=== PATIENT | female | born 1965 | race Caucasian/White ===

== ENCOUNTER 2017-03-19 13:56 | Emergency (ER) | payer OTHER ==
[~2017-03-19] VITALS: Ht 170.2 cm; Wt 73.9 kg
[2017-03-19 14:45] LABS: Basophils # (auto) 0 uL; Basophils % (auto) 0.8 % (0.0-2.0); Eosinophils # (auto) 0.1 uL; Eosinophils % (auto) 2.3 % (0.0-7.0); Hematocrit 39.5 % (36.0-46.0); Hemoglobin 13.1 g/dL (12.2-16.2); Lymphocytes # (auto) 1.1 uL; Lymphocytes % (auto) 20.7 % (10.0-50.0); Mean Corpuscular Hemoglobin 30.6 pg (28.0-32.0); Mean Corpuscular Hgb Conc. 33.3 g/dL (32.0-36.0); Monocytes # (auto) 0.4 uL; Monocytes % (auto) 8.3 % (0.0-12.0); Neutrophils # (auto) 3.6 uL; Neutrophils % (auto) 67.9 % (37.0-80.0); Platelet Count (auto) 191 10^3/uL (140-450); Red Blood Cells 4.29 10^6/uL (4.0-5.20); Red Cell Distribution Width 13.2 % (11.8-14.3); White Blood Cell 5.4 10^3/uL (4.4-10.8)
[2017-03-19 15:05] LABS: Alanine Aminotransferase 17 U/L (13-56); Albumin 3.6 g/dL (3.4-5.0); Alkaline Phosphatase 72 U/L (45-117); Anion Gap 6 (5-15); Aspartate Aminotransferase 8 U/L (15-37); BUN/Creatinine Ratio 17.5; Bilirubin, Total 0.6 mg/dL (0.2-1.0); Blood Urea Nitrogen 11 mg/dL (7-18); Calcium 8.5 mg/dL (8.5-10.1); Carbon Dioxide 25 mmol/L (21-32); Chloride 110 mmol/L (98-107); GFR African American 129 mL/min; GFR Non-African American 106 mL/min; Glucose 82 mg/dL (74-106); Magnesium 2.5 mg/dL (1.6-2.6); Potassium 3.9 mmol/L (3.5-5.1); Sodium 141 mmol/L (136-145); Total Protein 7.2 g/dL (6.4-8.2)
[2017-03-19 15:24] VITALS: BP 123/77
[2017-03-19] MEDS ORDERED: ONDANSETRON HCL 4 MG/2 ML VIAL IV ONE (16:30)
[2017-03-19] MEDS ORDERED: LORazepam 2MG/ML-1ML VIAL IV ONE (16:30)
[2017-03-19] MEDS ORDERED: NALBUPHINE HCL 10 MG/1ml INJECTION IV ONE (16:30)
[2017-03-19] MEDS ORDERED: ASPirin 325 MG TAB PO ONE (16:45)
== END 2017-03-19 17:05 | disposition home or self-care (01) ==
LOC: ER 13:56
DX: F41.9 Anxiety disorder, unspecified (principal)
CPT/HCPCS: 36415; 80053; 83735; 84484; 85025; 93005; 96374; 96375; 99285; J2060; J2405

== ENCOUNTER 2024-04-29 17:48 | Emergency (ER) | payer BC, OTHER ==
[~2024-04-29] VITALS: Ht 170.2 cm; Wt 64.0 kg
--- NOTE | 2024-04-29 18:07 | ED.PDOC ---
Back pain HPI HPI Comments 59y F who presents to the ED via EMS for chief complaint of back pain. Pt states she has been having lower back pain for the past 2 days shooting down her R leg. Pt states the pain started after she picked up her small dogs. Pt states she went to PCP and states she was given muscle relaxer but states it did not help and called EMS to the scene. EMS states pt was given 1 gram Tylenol and brought to the ED. Pt states in the pain, ED, the pain is 10/10, constant, with no associated exacerbating or relieving factors. Pt otherwise denies any other symptoms. Pt denies any fall or any associated injury. Pt otherwise denies any other symptoms at this time. Chief Complaint: Back Pain Time Seen by MD: 18:04 Primary Care Provider: UNKNOWN Reviewed Notes: Order Picker Notes Allergies: Coded Allergies: Penicillins (Verified Allergy, Severe, 04/29/24) Uncoded Allergies: OPIOIDS (Allergy, Unknown, 04/29/24) Home Meds Active Scripts Tramadol HCl (Tramadol HCl) 50 Mg Tab, 50 MG PO BID for 7 Days, #14 TAB Prov:SADIA RAMOS MD 04/29/24 Information Source: Patient, Emergency Med Personnel Mode of Arrival: EMS Brought in by: EMS Timing: Days Duration: Since onset Location of Back pain: (R) Buttocks, (R) Flank, (L) Lower back Radiates to: Posterior: (R) Buttocks Severity: Moderate Prehospital treatment: None Onset: Lifing Circumstance: Other History of: None Modifying Factors: Movement Associated signs and symptoms: None Past Medical History PAST MEDICAL HISTORY: Denies Surgical History: Hysterectomy Surgical History (Other): neck surgery, BASIN [employer]ER History: Denies all BAS[employer]ER Hx Family History Family History: Unknown Social History Smoker: Non-Smoker Alcohol: Denies ETOH Use Drugs: Denies Drug Use Lives In: Home Constitutional: denies: chills, diaphoresis, fatigue, fever, malaise, sweats, weakness, others EENTM: denies: blurred vision, double vision, ear bleeding, ear discharge, ear drainage, ear pain, ear ringing, eye pain, eye redness, hearing loss, mouth pain, mouth swelling, nasal discharge, nose bleeding, nose congestion, nose pain, photophobia, tearing, throat pain, throat swelling, voice changes, others Respiratory: denies: cough, hemoptysis, orthopnea, SOB at rest, shortness of breath, SOB with excertion, stridor, wheezing, others Cardiovascular: denies: chest pain, dizzy spells, diaphoresis, Dyspnea on exertion, edema, irregular heart beat, left arm pain, lightheadedness, palpitations, PND, syncope, others Gastrointestinal: denies: abdomen distended, abdominal pain, blood streaked bowels, constipated, diarrhea, dysphagia, difficulty swallowing, hematemesis, melena, nausea, poor appetite, poor fluid intake, rectal bleeding, rectal pain, vomiting, others Genitourinary: denies: abnormal vagina bleeding, burning, dyspareunia, dysuria, flank pain, frequency, hematuria, incontinence, pain, , vagina discharge, urgency, others Neurological: denies: dizziness, fainting, headache, left sided numbness, left sided weakness, numbness, paresthesia, pre-existing deficit, right sided numbness, right sided weakness, seizure, speech problems, tingling, tremors, weakness, others Musculoskeletal: reports: back pain; denies: gout, joint pain, joint swelling, muscle pain, muscle stiffness, neck pain, others Integumetry: denies: bruises, change in color, change in hair/nails, dryness, laceration, lesions, lumps, rash, wounds, others Allergic/Immunocompromised: denies: Difficulty Healing, Frequent Infections, Hives, Itching, others Hematologic/Lymphatic: denies: anemia, blood clots, easy bleeding, easy bruising, swollen glands, others Endocrine: denies: excessive hunger, excessive sweating, excessive thirst, excessive urination, flushing, intolerance to cold, intolerance to heat, unexplained weight gain, unexplained weight loss, others Psychiatric: denies: anxiety, bipolar disorder, depression, hopeless, panic disorder, schizophrenia, sleepless, suicidal, others All Other Systems: Reviewed and Negative Physical Exam General Appearance: Moderate Distress HEENT: Normal ENT Inspection, Pharynx Normal, TMs Normal Neck: Full Range of Motion, Non-Tender, Normal, Normal Inspection Respiratory: Chest Non-Tender, Lungs Clear, No Accessory Muscle Use, No Respiratory Distress, Normal Breath Sounds Cardiovascular: No Edema, No JVD, No Murmur, No Gallop, Normal Peripheral Pulses, Regular Rate/Rhythm Breast Exam: Deferred Gastrointestinal: No Organomegaly, Non Tender, No Pulsatile Mass, Normal Bowel Sounds, Soft Genitalia: Deferred Pelvic: Deferred Rectal: Deferred Extremities: No calf tenderness, Normal capillary refill, No pedal edema Musculoskeletal : Location: Left Extremity Location: Back Apperance: Limited ROM, Tenderness: Moderate Neurologic: Alert, food chemist II-XII nml as Tested, No Motor Deficits, Normal Affect, Normal Mood, No Sensory Deficits Cerebellar Function: Normal Reflexes: Normal Skin: Dry, Normal Color, Warm Lymphatic: No Adenopathy Was a procedure done? Was a procedure done?: No Back Pain Differential Dx Differential Diagnosis: DJD, Musculoskeletal Pain Other Differential Diagnosis sciatica, muscle strain, spasm, lumbar radiculopathy X-Ray, Labs, Meds, VS Vital Signs Date Time Temp Pulse Resp B/P (MAP) Pulse Ox O2 Delivery O2 Flow Rate FiO2 04/29/24 17:55 98.7 87 12 129/58 (81) 99 98.7 Lab Test 04/29/24 18:15 Range/Units Urine Color Colorless Yellow Urine Clarity Clear Clear Urine pH 7.5 5.0-9.0 Urine Specific [place] 1.005 1.001-1.035 Urine Protein Negative Negative Urine Ketones Negative Negative Urine Blood Negative Negative /uL Urine Nitrite Negative Negative Urine Bilirubin Negative Negative Urine Urobilinogen Normal Negative mg/dL Urine Leukocyte Esterase Negative Negative /uL Urine RBC <1 0 - 4 /hpf Urine Microscopic WBC 0-5 /HPF Urine Squamous Epithelial Cells Few <5 /hpf Urine Bacteria Few H None Seen /hpf Urine Glucose Normal Normal mg/dL Current Medications Medications (Trade) Dose Ordered Sig/Levon Route Start Time Stop Time Status Last Admin Ondansetron HCl (Zofran) 4 mg ONCE ONCE IV 04/29/24 18:15 04/29/24 18:16 DC 04/29/24 19:07 Ketorolac Tromethamine (Toradol Injection) 30 mg ONCE ONCE IV 04/29/24 19:45 04/29/24 19:46 DC 04/29/24 20:21 X-ray of the LS spine shows:FINDINGS/IMPRESSION: There is no evidence of acute fracture or dislocation. The visualized joint space is well maintained. Levoscoliosis of the lumbar spine. Possible grade 1 anterior spondylolisthesis L4-5. There is no radiopaque foreign body. The urine test is negative for infection The patient was given ketorolac 30 mg IV push The patient was given Zofran 4 mg IV push At this time, the patient was being discharged with tramadol The patient will return to the emergency department's condition worsens. Images Reviewed?: Images reviewed and evaluated by me Time of 1ST Reevaluation: 18:35 Reevaluation 1ST: Unchanged Patient Education/Counseling: Diagnosis, Treatment, Prognosis, Need For Follow Up Family Education/Counseling: No Family Present Additional Information -Reviewed patient's previous visit(s): - The following tests were ordered, and results were reviewed by me: UA, lumbar spine x-ray - Additional information was gathered from interviewing the following independent Historian: patient - I reviewed and agreed with the following test results read by other provider: radiologist - I discussed treatments and results with medical personnel and: patient Comprehensive systems review obtained and negative except for what is stated in the HPI. Departure 1 Departure Time of Disposition: 21:28 Impression: Primary Impression: Sciatica Qualified Codes: M54.32 - Sciatica, left side Disposition: HOME / SELF CARE / HOMELESS Condition: Fair e-Prescriptions Tramadol HCl (Tramadol HCl) 50 Mg Tab 50 MG PO BID for 7 Days, #14 TAB Prov: SADIA RAMOS MD 04/29/24 Discharged With: Self Critical Care Note Critical Care Time?: No Stability Stability form required: No Heart Score Heart Score: Heart Score Response (Comments) Value History N/A 0 EKG N/A 0 Age N/A 0 Risk Factors N/A 0 Troponin N/A 0 Total 0 I personally scribed for SADIA RAMOS MD ([email or web address]) on 04/29/24 at 18:07. Electronically submitted by Saul Wright ([email or web address]). I personally scribed for SADIA RAMOS MD ([email or web address]) on 04/29/24 at 20:02. Electronically submitted by Saul PICKARD). SADIA RAMOS MD Apr 29, 2024 18:07
[2024-04-29] MEDS: HYDROmorphone HCL 2 MG/ML VL/or syr IV ONE (19:06)
[2024-04-29] MEDS: ONDANSETRON HCL 4 MG/2 ML VIAL IV ONE (19:07)
[2024-04-29 19:47] LABS: Urine Bacteria FEW /hpf (None Seen); Urine Blood Negative /uL (Negative); Urine Clarity Clear (Clear); Urine Color Colorless (Yellow); Urine Protein, UAD Negative (Negative); Urine Specific Gravity 1.005 (1.001-1.035); Urine Squamous Epithelial Cell FEW /hpf (<5); Urine Urobilinogen Normal (Negative); Urine pH 7.5 (5.0-9.0)
[2024-04-29] MEDS: KETOROLAC TROMETH 30 MG/ML 1ML VIAL IV ONE (20:21)
[2024-04-29] MEDS ORDERED: TRAM-626 PO (21:25)
--- NOTE | 2024-04-29 21:25 | DVH ---
CLINICAL INDICATION: pain TECHNIQUE: 2 radiographic views of the lumbar spine were obtained. Comparison: None FINDINGS/IMPRESSION: There is no evidence of acute fracture or dislocation. The visualized joint space is well maintained. Levoscoliosis of the lumbar spine. Possible grade 1 anterior spondylolisthesis L4-5. There is no radiopaque foreign body.
[2024-04-29] MEDS ORDERED: METH4PAK PO (21:46)
[2024-04-29] MEDS: HYDROmorphone HCL 2 MG/ML VL/or syr IM ONE (22:02)
[2024-04-29] MEDS: ONDANSETRON ODT 4 MG TAB PO ONE (22:02)
[2024-04-29 22:04] VITALS: BP 149/83; PULSE 84; RESP 20; TEMP 98; O2SAT 100
== END 2024-04-29 22:07 | disposition home or self-care (01) ==
LOC: EDBD 17:48 → ER 17:48
DX: M54.32 Sciatica, left side (principal); Z90.710 Acquired absence of both cervix and uterus; Z98.890 Other specified postprocedural states; Z88.0 Allergy status to penicillin
CPT/HCPCS: 72100; 81001; 96372; 96374; 96375; 99284; J1171; J1885; J2405; Q0162